=== PATIENT | female | born 1960 | race Caucasian/White ===

== ENCOUNTER → 2016-03-07 | Outpatient (CLI) | payer MEDICARE ==
--- NOTE | 2016-03-07 14:54 | MAM ---
EXAM DESCRIPTION: MAMMO BREAST SCREENING BILATERAL CAD, images were reviewed with CAD technology, R2 computer-aided detection. CLINICAL HISTORY: Well Woman, personal history of breast cancer status post right mastectomy. COMPARISON: 2014. FINDINGS: Routine views are obtained. Heterogeneously dense breast parenchyma with left breast asymmetry approximately 5 cm from the nipple at 2 o'clock period benign appearing calcifications are shown. A port overlies the axillary tissues and reactive appearing lymph nodes also demonstrated.. IMPRESSION: Incomplete study. BIRAD CATEGORY: 0 INCOMPLETE RECOMMENDATIONS: FOLLOW-UP: Mammographic asymmetry left breast 2 o'clock. Exaggerated lateral and true lateral views of the left breast with spot compression films. Directed ultrasound if indicated clinically. According to the [employer], yearly mammograms are recommended starting at age 40 and continuing as long as a woman is in good health. Any breast change noted on a breast self-exam should be reported promptly to the patient's healthcare provider. Breast MRI is recommended for women with an approximately 20-25% or greater lifetime risk of breast cancer, including women with a strong family history of breast or ovarian cancer and women who have been treated for Hodgkin's disease. Electronically signed by: Pauline Hampton 03/07/2016 14:52
== END ==
LOC: MAMMO 13:25
PROVIDERS: ATTEND Internal Medicine Hematology & Oncology
DX: Z12.31 Encounter for screening mammogram for malignant neoplasm of breast (principal)
CPT/HCPCS: 77052; G0202

== ENCOUNTER → 2016-06-21 | Outpatient (CLI) | payer MEDICARE ==
--- NOTE | 2016-06-21 16:44 | MAM ---
History: Mammographic asymmetry left breast 1:00. Personal history of breast cancer status post right mastectomy. DATE OF SERVICE: 06/21/2016 Services provided: Full field digital diagnostic left mammography. FINDINGS: True lateral and spot compression films are obtained. Nodular breast parenchyma is of increased mammographic density however the additional films do not demonstrate a persistent asymmetry. No associated distortion or microcalcification. Study is compared with films from 2015 with glandular pattern stable. IMPRESSION: Benign exam. No mammographic evidence for malignancy left breast. Asymmetry corresponded to overlapping normal glandular tissue in an otherwise nodular dense breast. Recommendation: Routine annual mammography, due in February. Findings and recommendations were communicated to the patient. BIRAD CATEGORY: 2 BENIGN Electronically signed by: Pauline Hampton MD 06/21/2016 4:41 PM CDT
== END ==
LOC: MAMMO 16:05
PROVIDERS: ATTEND Internal Medicine Hematology & Oncology
DX: C50.811 Malignant neoplasm of overlapping sites of right female breast (principal)
CPT/HCPCS: 77065; G0206

== ENCOUNTER → 2017-01-02 | Outpatient (CLI) | payer MEDICARE ==
--- NOTE | 2017-01-03 09:45 | NM ---
EXAM DESCRIPTION: Bone Scan, Whole Body CLINICAL HISTORY: 56-year-old, female, history of breast cancer. COMPARISON: Bone scan dated October 21, 2014. TECHNIQUE: Following intravenous administration of 25 mCi technetium 99 M MDP, whole body scintigraphic imaging was performed. FINDINGS: Skull: Unremarkable. Spine:There is new increased radiotracer uptake in the T10 vertebral body, concerning for osteoblastic metastatic involvement. Thorax: There is new foci of increased linear uptake in the posterior right seventh and ninth ribs, concerning for metastatic involvement. Abdomen and pelvis: Urinary activity seen within the bilateral kidneys and urinary bladder, similar in appearance compared to previous. Extremities: Increased radiotracer uptake seen within the bilateral elbow joints, wrist joints, right ankle and left knee joint compatible with severe degenerative changes. Soft tissue: Normal distribution of radiopharmaceutical. IMPRESSION: New increased radiotracer uptake in the T10 vertebral body as well as posterior right seventh and ninth ribs are concerning for osteoblastic metastatic involvement given patient's history of breast malignancy. Osseous fracture involving the T10 vertebral body and posterior right ribs can have this appearance. Please correlate for history of trauma and focal point tenderness. Electronically signed by: Daniel Mahmood MD 01/03/2017 9:43 AM SECOND MATE
== END | disposition home or self-care (01) ==
LOC: NM 09:42
PROVIDERS: ATTEND Internal Medicine Hematology & Oncology
DX: C50.811 Malignant neoplasm of overlapping sites of right female breast (principal)

== ENCOUNTER 2017-01-04 21:55 | Emergency (ER) | payer MEDICARE ==
[2017-01-04] MEDS ORDERED: IPRATROPIUM/ALBUTEROL 3 ML VIAL NEB ONE (22:04)
--- NOTE | 2017-01-04 22:07 | ED.PDOC ---
History of Present Illness - General Chief Complaint: Respiratory Problem Stated Complaint: Dyspnea Time Seen by Provider: 01/04/17 21:56 Source: patient, RN notes reviewed, Vital Signs reviewed Exam Limitations: no limitations - History of Present Illness Initial Comments: Patient presents to the ER with SOB that started this evening. Reports she started with morning with a scratchy throat and RÍOS. Then developed a productive cough and SOB. Reports the last time she felt like this she had pneumonia. She has a history of breast cancer but has finished treatment. Timing/Duration: 7-24 hours Severity: moderate Activities at Onset: none Possible Cause: illness exposure Improving Factors: nothing Worsening Factors: nothing Associated Symptoms: cough Respiratory Risk Factors: no cause identified Allergies/Adverse Reactions: Allergies NO KNOWN ALLERGY Allergy (Verified 02/09/15 09:12) Home Medications: Ambulatory Orders Alendronate Sodium [Fosamax] 70 mg PO WKLY 02/09/15 Carisoprodol [Soma] 350 mg PO TID 02/09/15 DULoxetine HCL [Cymbalta] 30 mg PO DAILY 02/09/15 Esomeprazole Magnesium [Nexium 24Hr] 20 mg PO DAILY 02/09/15 Ferrous Sulfate [Iron] 65 mg PO BID 02/09/15 Folic Acid 800 mcg PO BID 02/09/15 HYDROcodone 10MG/APAP 325MG [[place] 10/325] 1 tab PO PRN 02/09/15 Methotrexate Sodium [Methotrexate] 2.5 mg PO WKLY 02/09/15 Non-Formulary Medication 1 au INJ MONTHLY 02/09/15 Prednisone 5 mg PO EBONI-OTH-DAY 02/09/15 Tramadol HCl 100 mg PO PRN 02/09/15 Review of Systems - Review of Systems Constitutional: States: chills, malaise EENTM: States: no symptoms reported Respiratory: States: cough, short of breath Cardiology: States: no symptoms reported. Denies: chest pain Gastrointestinal/Abdominal: States: no symptoms reported Musculoskeletal: States: no symptoms reported Skin: States: no symptoms reported Neurological: States: headache All other Systems: No Change from Baseline Past Medical History (General) - Patient Medical History Hx Congestive Heart Failure: No Hx Diabetes: No Physical Exam - Physical Exam General Appearance: Alert, Frail, Ill Appearing, Well Developed, Well Groomed, Well Hydrated, Well Nourished Neck: supple, normal inspection Respiratory: respiratory distress - Mild, decreased breath sounds - Left, accessory muscle use, rhonchi, wheezing Cardiovascular/Chest: regular rate, rhythm, no edema, no gallop, no JVD, no murmur Gastrointestinal/Abdominal: normal bowel sounds, non tender, soft, no organomegaly, no pulsatile mass Extremity: normal range of motion, normal inspection, no pedal edema Neurologic: alert, normal mood/affect, oriented x 3 Skin Exam: normal color, warm/dry Progress - Progress Progress: 01/05/17 01:53 Have been attempting for the past 2 hours to get patient admitted. Hospitalist will not admit here due to spinal lesion. [facility] where her oncologist is will not admit her there for the same reason. Oncologist internal consultant will not admit patient. Neurosurgeon at [facility] in [place] will not admit patient due to potential surgery she may need. Awaiting call back from [facility] in [place]. 01/05/17 01:57 Was given Zithromax 500mg IV for pneumonia 01/05/17 02:14 [facility] no longer has Neurosurgery so now attempting Medical [facility] [place] - Results/Orders Results/Orders: Laboratory Tests 01/04/17 01/04/17 01/04/17 22:10 22:10 22:10 WBC 11.5 H RBC 3.42 L Hgb 9.6 L Hct 29.8 L MCV 87.2 MCH 28.0 MCHC 32.3 L RDW 15.4 H Plt Count 360 MPV 8.1 Absolute Neuts (auto) 9.90 H Absolute Lymphs (auto) 0.90 L Absolute Monos (auto) 0.70 Absolute Eos (auto) 0.00 Absolute Basos (auto) 0.00 Neutrophils % 86.1 H Lymphocytes % 7.9 L Monocytes % 5.8 Eosinophils % 0.0 L Basophils % 0.2 D-Dimer, Quantitative 1048 H* Sodium 133 L Potassium 3.6 Chloride 99 L Carbon Dioxide 25 Anion Gap 12.6 BUN 11 Creatinine 0.60 BUN/Creatinine Ratio 18.3 Random Glucose 124 H Serum Osmolality 267.2 L Lactic Acid Calcium 8.6 Total Bilirubin 0.3 AST 74 H ALT 81 H Alkaline Phosphatase 390 H B-Natriuretic Peptide 615.0 H* Serum Total Protein 7.5 Albumin 3.2 Globulin 4.3 H Albumin/Globulin Ratio 0.7 L 01/04/17 23:05 WBC RBC Hgb Hct MCV MCH MCHC RDW Plt Count MPV Absolute Neuts (auto) Absolute Lymphs (auto) Absolute Monos (auto) Absolute Eos (auto) Absolute Basos (auto) Neutrophils % Lymphocytes % Monocytes % Eosinophils % Basophils % D-Dimer, Quantitative Sodium Potassium Chloride Carbon Dioxide Anion Gap BUN Creatinine BUN/Creatinine Ratio Random Glucose Serum Osmolality Lactic Acid 1.2 Calcium Total Bilirubin AST ALT Alkaline Phosphatase B-Natriuretic Peptide Serum Total Protein Albumin Globulin Albumin/Globulin Ratio - EKG/XRAY/CT XRAY: chest - LLL Infiltrate per Rad CT Ordered: Yes - T10 spinal mass neoplasm vs infection per Radiologist Departure - Departure Clinical Impression: Lumbar epidural mass Pneumonia Qualifiers: Pneumonia type: due to unspecified organism Laterality: left Lung location: lower lobe of lung Qualified Code(s): J18.1 - Lobar pneumonia, unspecified organism Breast cancer in female Qualifiers: Breast location: unspecified site of breast Estrogen receptor status: unspecified Laterality: right Qualified Code(s): C50.911 - Malignant neoplasm of unspecified site of right female breast Time of Disposition: 02:33 Disposition: Transfer to Hospital Condition: Poor Departure Forms: ED Discharge - Pt. Copy, Patient Portal Self Enrollment Referrals: Yogesh Hoyt MD [Primary Care Provider] - 1-2 Weeks Home Medications: Ambulatory Orders Alendronate Sodium [Fosamax] 70 mg PO WKLY 02/09/15 Carisoprodol [Soma] 350 mg PO TID 02/09/15 DULoxetine HCL [Cymbalta] 30 mg PO DAILY 02/09/15 Esomeprazole Magnesium [Nexium 24Hr] 20 mg PO DAILY 02/09/15 Ferrous Sulfate [Iron] 65 mg PO BID 02/09/15 Folic Acid 800 mcg PO BID 02/09/15 HYDROcodone 10MG/APAP 325MG [[place] 10/325] 1 tab PO PRN 02/09/15 Methotrexate Sodium [Methotrexate] 2.5 mg PO WKLY 02/09/15 Non-Formulary Medication 1 au INJ MONTHLY 02/09/15 Prednisone 5 mg PO EBONI-OTH-DAY 02/09/15 Tramadol HCl 100 mg PO PRN 02/09/15 Transfer to Outside Facility - Transfer Information Accepting Provider:: Dr. Vallejo - hospitalist and Dr. Nielsen - Spine Accepting Facility: [facility] Reason for Transfer: required specialist not available
--- NOTE | 2017-01-04 22:54 | RAD ---
EXAM DESCRIPTION: Chest,2 Views CLINICAL HISTORY: SOB, Cough, Fever COMPARISON: 02/10/2015 and 02/09/2015 FINDINGS: Two views of the chest are submitted. Subcutaneous Central catheter tip is unchanged, near the origin of the SVC. There is consolidation at the left posterior lung base and mild atelectasis at the right lung base. There is a right seventh rib fracture not previously seen. It appears acute. Correlation with exam is recommended. Heart size is stable. There is a possible hiatal hernia. There is a collapsed the midthoracic vertebral body that was not previously seen. This causes exaggerated thoracic kyphosis. IMPRESSION: Consolidation at the left lung base. Possible hiatal hernia. Thoracic vertebral body collapse, new since the prior exam. Right seventh rib fracture, new since the prior exam and possibly acute. Electronically signed by: Chava Goldstein 01/04/2017 10:53 PM [facility]
[2017-01-04] MEDS ORDERED: AZITHROMYCIN IV 500 MG in SODIUM CHLORIDE 0.9% 250ML 250 ML IVPB ONE (22:58)
[2017-01-04] MEDS ORDERED: SODIUM CHLORIDE 0.9% 250ML 250 ML ONE (23:25)
[2017-01-04] MEDS ORDERED: AZITHROMYCIN IV 500 MG VIAL IVPB ONE (23:25)
--- NOTE | 2017-01-04 23:45 | CT ---
PROCEDURE: CTA Chest CLINICAL HISTORY: 56 years Female SOB w/ elevated D-Dimer COMPARISON: None. TECHNIQUE: Contiguous axial images were obtained through the chest during the infusion of IV contrast. Reformatted images obtained. MIP reformatted images obtained. This exam was performed according to our department optimization program which includes automated exposure control, adjustment of the mA and/or kv according to patient size and/or use of iterative reconstruction technique. FINDINGS: Motion artifact limits evaluation. Moderate hiatal hernia. No convincing evidence for pulmonary embolus. No significant hilar or mediastinal adenopathy. No evidence of pericardial fluid. Trace pleural effusions. Aorta is normal in caliber without dissection or rupture. Xyefbs-y-[id number] catheter over the left chest. There is a vertebral plana at T10 which given the patient's history may reflect osseous metastatic disease. There is retropulsion of the fracture fragments with moderate narrowing of the central canal. There is some of the posterior elements at T10. There also appears to be partial destruction of the anterior aspect of T9. There is gibbus deformity as a result of the fracture. Tumor appears to extend into the T10 pedicle and right side of the epidural space. The possibility of infection is not excluded but thought less likely. Emphysematous changes. There is mild bronchial wall thickening with areas of atelectasis and infiltrate in the left lower lobe which may BE infectious in nature. Small amount of atelectasis and patchy infiltrate is present in the right lung base and right middle lobe. There are occasional noncalcified pulmonary nodules which again given the history, is suspicious for metastatic disease. Small focus is seen in the posterior aspect of the right upper lobe on image 31. Right lower lobe nodule on image 57 measures 6 mm. Heterogeneity of the liver with area of hyperdensity in the right lobe that may be as result of perfusion abnormality versus mass. Low-attenuation lesion in the dome concerning for neoplasm measures 2.4 cm. IMPRESSION:No evidence of pulmonary embolus Patchy areas of alveolar infiltrate and atelectasis in the left lower lobe with associated pleural effusion concerning for infectious process. Small amount of bronchial wall thickening and density is present in the right middle lobe and right lung base Vertebral plana at T10 with soft tissue mass in the anterior and right epidural space resulting in moderate central canal stenosis concerning for metastatic disease with some involvement of the anterior aspect of T9. Possibility of infection is not excluded but thought less likely Noncalcified pulmonary nodules and areas of heterogeneity within the liver as described above. Findings may reflect metastatic disease Electronically signed by: Carina Nation 01/04/2017 11:44 PM [facility]
[2017-01-05] MEDS ORDERED: ALBUTEROL SULFATE 2.5 MG/3 ML VIAL NEB ONE (00:02)
[2017-01-05] MEDS ORDERED: ACETAMINOPHEN 500 MG TAB ONE (03:00)
[2017-01-05] MEDS ORDERED: ACETAMINOPHEN 500 MG TAB PO ONE (03:00)
[2017-01-05 03:40] VITALS: BP 106/58; TEMP 101; O2SAT 99
== END 2017-01-05 03:30 | disposition short-term general hospital (02) ==
LOC: ER 21:55
DX: J18.1 Lobar pneumonia, unspecified organism (principal); M53.9 Dorsopathy, unspecified; C50.911 Malignant neoplasm of unspecified site of right female breast; Z79.899 Other long term (current) drug therapy
CPT/HCPCS: 36415; 71020; 71275; 80053; 83605; 83880; 85025; 85379; 87040; 94640; J0456; J7050; J7611; J7620

== ENCOUNTER → 2017-04-04 | Outpatient (CLI) | payer MEDICARE ==
--- NOTE | 2017-04-09 12:20 | MAM ---
EXAM DESCRIPTION: 3D Screening, Left : Digital Mammography. CLINICAL HISTORY: 57 years Female SCREENING . Right breast cancer and mastectomy. Remote family history of breast cancer. Postmenopausal. No HRT. COMPARISON: 2-D digital screening study left breast 03/07/2016, 2-D digital left breast diagnostic examination 06/21/2016, and 2-D digital bilateral diagnostic examination 09/30/2014. No prior reports available. Reports from prior examinations also reviewed. Report from prior examination also reviewed. TECHNIQUE: Left CC and MLO projection full-field images, 3-D tomosynthesis digital mammographic technique. Also left synthesized CC/ MLO full-field images. CAD not utilized. FINDINGS: Left breast parenchymal density pattern is: Heterogeneously dense breast tissue, which may obscure small masses. No skin thickening or nipple retraction injection port for VAD upper left breast. Coarse and solitary microcalcifications. No focal, stellate mass or density, focal asymmetry , and no suspicious microcalcifications left breast. Stable mammograms compared to prior study, taking into account differences in mammographic technique IMPRESSION: BI-RADS CATEGORY: 2 - BENIGN FINDINGS. FOLLOW UP: Routine digital left breast screening, one year interval from March 2017. Written communication explaining the IMPRESSION and follow-up, will be mailed to the patient and referring health care provider. According to the [employer], yearly mammograms are recommended starting at age 40 and continuing as long as a woman is in good health. Any breast change noted on a breast self-exam should be reported promptly to the patient's healthcare provider. Breast MRI is recommended for women with an approximately 20-25% or greater lifetime risk of breast cancer, including women with a strong family history of breast or ovarian cancer and women who have been treated for Hodgkin's disease. A negative mammographic report should not delay tissue diagnosis in patients with significant clinical history or physical findings. Extremely dense breast tissue limits the sensitivity of digital mammography. Electronically signed by: Chava Wilkerson MD 04/09/2017 12:19 PM [employer]
== END ==
LOC: MAMMO 14:30
PROVIDERS: ATTEND Internal Medicine Hematology & Oncology
DX: Z12.31 Encounter for screening mammogram for malignant neoplasm of breast (principal)

== ENCOUNTER 2017-07-25 18:49 | Emergency (ER) | payer MEDICARE ==
[2017-07-25] MEDS ORDERED: fentaNYL CITRATE INJ 50 MCG/ML AMP IV ONE ×2 (18:59→21:06)
--- NOTE | 2017-07-25 19:31 | ED.PDOC ---
History of Present Illness - General Chief Complaint: Lower Extremity Injury Stated Complaint: Rt hip pain Time Seen by Provider: 07/25/17 19:04 Source: patient Exam Limitations: no limitations - History of Present Illness Initial Comments: Annemarie Lora 57 y/o female stated that while she was walking t her gate had heard a pop on right hip with onset of sharp constant pain pain on her right hip after wards then had to hold on to the gate railings to prevent her from falling since she had severe pain on weight bearing then called up ambulance.She stated had history of right breast cancer with distant metastasis to her t-spine ,liver.Diagnosed in 2015 initially with right breast ca and had 15 positive nodes on mastectomy w/LN dissection.Then 2017 had PNA but noted t- spine mets.Underwent chemotherapy and radiation treatment with Dr. Ramirez- oncologist.. Occurred: just prior to arrival Pain - Lower Extremity: moderate: Right Thigh/Hip Method of Injury: other - see hpi Improving Factors: rest Worsening Factors: movement Associated Symptoms: see hpi Allergies/Adverse Reactions: Allergies NO KNOWN ALLERGY Allergy (Verified 02/09/15 09:12) Home Medications: Ambulatory Orders Alendronate Sodium [Fosamax] 70 mg PO WKLY 02/09/15 Carisoprodol [Soma] 350 mg PO TID 02/09/15 DULoxetine HCL [Cymbalta] 30 mg PO DAILY 02/09/15 Esomeprazole Magnesium [Nexium 24Hr] 20 mg PO DAILY 02/09/15 Ferrous Sulfate [Iron] 65 mg PO BID 02/09/15 Folic Acid 800 mcg PO BID 02/09/15 HYDROcodone 10MG/APAP 325MG [[place] 10/325] 1 tab PO PRN 02/09/15 Methotrexate Sodium [Methotrexate] 2.5 mg PO WKLY 02/09/15 Non-Formulary Medication 1 au INJ MONTHLY 02/09/15 Prednisone 5 mg PO EBONI-OTH-DAY 02/09/15 Tramadol HCl 100 mg PO PRN 02/09/15 Review of Systems - Review of Systems Constitutional: States: no symptoms reported EENTM: States: no symptoms reported Respiratory: States: no symptoms reported Cardiology: States: no symptoms reported Musculoskeletal: States: see HPI Neurological: States: no symptoms reported Past Medical History (General) - Patient Medical History Hx Seizures: No Hx Stroke: No Hx Dementia: No Hx Asthma: No Hx of COPD: No Hx Cardiac Disorders: Yes - Tachycardia Hx Congestive Heart Failure: No Hx Pacemaker: No Hx Hypertension: No Hx Thyroid Disease: No Hx Diabetes: No Hx Gastroesophageal Reflux: No Hx Renal Disease: No Hx Cancer: Yes - Breast that has mets to bone and liver Hx of HIV: No Hx Hepatitis C: No Hx MRSA: No Hx Other PMH: Yes - Rheumatoid arthritis Surgical History: cancer surgery, other - right knee,back - Vaccination History Hx Tetanus, Diphtheria Vaccination: Yes Hx Influenza Vaccination: Yes Hx Pneumococcal Vaccination: Yes Immunizations Up to Date: Yes - Social History Hx Tobacco Use: No Hx Chewing Tobacco Use: No Hx Alcohol Use: No Hx Substance Use: No Hx Substance Use Treatment: No Hx Depression: No Feels Threatened In Home Enviroment: No Feels Threatened In a Relationship: No Hx Physical Abuse: No Hx Emotional Abuse: No Hx Suspected Abuse: No - Activities of Daily Living Patient Lives Alone: No Hospice Agency (if applicable):: None - Female History Patient is a Female of Child Bearing Age (10 -59 yrs old): No - Triage Comment ED Triage Comment: Pt states she was walking around and her right hip popped about an hour ago and she started having pain. Pt rates pain 10/28. Family Medical History - Family History Mother Family History: Unknown Hx Family Hypertension: Yes - mom Hx Family Diabetes: Yes - mom Hx Family Cancer: Yes - other relatives Hx Family;Other: DAD-Rheumatoid arthritis Physical Exam - Physical Exam General Appearance: Alert, Comfortable, No apparent distress Eyes, Ears, Nose, Throat: normal ENT inspection Neck: non-tender, supple Cardiovascular/Respiratory: regular rate, rhythm, no M/R/G, normal peripheral pulses, normal breath sounds Gastrointestinal/Abdominal: non-tender, no organomegaly Back: no CVA tenderness, no vertebral tenderness Thigh/Hip: bone tenderness - right hip, limited ROM - right hip, pain - right hip Leg: normal inspection, non-tender, no evidence of injury, other - well healed surgical incision right knee Ankle: non-tender, no evidence of injury Foot: non-tender, no evidence of injury Neuro/Tendon: normal sensation, normal motor functions Mental Status: alert, oriented x 3 Skin: normal color, warm/dry Progress - Progress Progress: 07/25/17 19:36 Vital Signs - 8 hr 07/25/17 18:57 Temperature 97.9 F Pulse Rate [ 95 H Monitor] Respiratory 18 Rate Blood Pressure 157/80 [Right Arm] O2 Sat by Pulse 100 Oximetry 07/25/17 21:42 D/W Dr. Ramirez advised to call orthopedic oncologist Dr. Gerard Dawn- [facility]. - EKG/XRAY/CT CT Ordered: Yes - pelvis -pathologic fracture right hip w/multiple pelvic lesion Departure - Departure Clinical Impression: Pathological fracture, hip, unspecified, initial encounter for fracture, Metastatic breast cancer, Pain, joint, hip, right Time of Disposition: 21:40 Disposition: Transfer to Hospital Condition: Poor Departure Forms: Patient Portal Self Enrollment Referrals: Yogesh Hoyt MD [Primary Care Provider] - 1-2 Weeks Home Medications: Ambulatory Orders Alendronate Sodium [Fosamax] 70 mg PO WKLY 02/09/15 Carisoprodol [Soma] 350 mg PO TID 02/09/15 DULoxetine HCL [Cymbalta] 30 mg PO DAILY 02/09/15 Esomeprazole Magnesium [Nexium 24Hr] 20 mg PO DAILY 02/09/15 Ferrous Sulfate [Iron] 65 mg PO BID 02/09/15 Folic Acid 800 mcg PO BID 02/09/15 HYDROcodone 10MG/APAP 325MG [[place] 10/325] 1 tab PO PRN 02/09/15 Methotrexate Sodium [Methotrexate] 2.5 mg PO WKLY 02/09/15 Non-Formulary Medication 1 au INJ MONTHLY 02/09/15 Prednisone 5 mg PO EBONI-OTH-DAY 02/09/15 Tramadol HCl 100 mg PO PRN 02/09/15 Transfer to Outside Facility - Transfer Information [facility] Reason for Transfer: required specialist not available
--- NOTE | 2017-07-25 20:43 | CT ---
EXAM DESCRIPTION: Pelvis CLINICAL HISTORY: 57 years Female pain right/hip;hx of right breast CA w/mets COMPARISON: None TECHNIQUE: Multiplanar imaging through the pelvis without contrast. This exam was performed according to our departmental dose-optimization program, which includes automated exposure control, adjustment of the mA and/or kV according to patient size and/or use of iterative reconstruction technique. FINDINGS: Right femoral subcapital neck fracture with proximal displacement of distal fracture fragment with mild impaction at the femoral head fracture fragment. Multiple lytic lesions seen within the right trochanteric region measuring up to 2 cm. Additional lytic lesions seen within the left iliac bone with area of irregularity. Additional lytic lesion within the right iliac bone at the sacroiliac joint and within the right superior acetabulum. Subacute appearing fracture through the right inferior pubic ramus. Focal sclerosis within the left ischium. Sclerotic lesions within the inferior aspect of the L4 vertebral body. L5-S1 degenerative changes. IMPRESSION: Right femoral neck subcapital fracture with displacement and impaction. Nondisplaced fracture through the right inferior pubic ramus. Fractures may be pathologic. Multiple osseous lesions consistent with metastases. Electronically signed by: Tacho Arceo MD 07/25/2017 8:42 PM CDT
[2017-07-25 22:01] VITALS: O2SAT 98
[2017-07-25 22:02] VITALS: BP 145/97; TEMP 97.5
== END 2017-07-25 22:15 | disposition short-term general hospital (02) ==
LOC: ER 18:49
DX: M84.459A Pathological fracture, hip, unspecified, initial encounter for fracture (principal); R00.0 Tachycardia, unspecified; M06.9 Rheumatoid arthritis, unspecified; Z85.3 Personal history of malignant neoplasm of breast; Z85.830 Personal history of malignant neoplasm of bone; Z85.05 Personal history of malignant neoplasm of liver
CPT/HCPCS: 36416; 72192; 81001; J3010

== ENCOUNTER → 2017-08-19 | Outpatient (CLI) | payer MEDICARE | LOC: LAB.O 10:16 | PROVIDERS: ATTEND Internal Medicine Hematology & Oncology | DX: C50.811 Malignant neoplasm of overlapping sites of right female breast (principal); C79.31 Secondary malignant neoplasm of brain; C79.51 Secondary malignant neoplasm of bone; C77.3 Secondary and unspecified malignant neoplasm of axilla and upper limb lymph nodes; D50.9 Iron deficiency anemia, unspecified; M85.88 Other specified disorders of bone density and structure, other site; G89.29 Other chronic pain; M06.9 Rheumatoid arthritis, unspecified; M47.816 Spondylosis without myelopathy or radiculopathy, lumbar region; Z17.0 Estrogen receptor positive status [ER+]; Z72.0 Tobacco use ==

== ENCOUNTER → 2017-08-30 | Outpatient (CLI) | payer MEDICARE | LOC: LAB.O 13:42 | PROVIDERS: ATTEND Internal Medicine Hematology & Oncology | DX: C50.811 Malignant neoplasm of overlapping sites of right female breast (principal) ==

== ENCOUNTER → 2017-09-06 | Outpatient (CLI) | payer MEDICARE | LOC: LAB.O 16:50 | PROVIDERS: ATTEND Internal Medicine Hematology & Oncology | DX: C50.811 Malignant neoplasm of overlapping sites of right female breast (principal) ==

== ENCOUNTER → 2017-09-13 | Outpatient (CLI) | payer MEDICARE | LOC: LAB.O 10:45 | PROVIDERS: ATTEND Internal Medicine Hematology & Oncology | DX: C50.811 Malignant neoplasm of overlapping sites of right female breast (principal) ==

== ENCOUNTER → 2017-11-04 | Outpatient (CLI) | payer MEDICARE | LOC: GRHH 14:50 | PROVIDERS: ATTEND General Practice | DX: C50.911 Malignant neoplasm of unspecified site of right female breast (principal); C79.31 Secondary malignant neoplasm of brain; D50.9 Iron deficiency anemia, unspecified; I50.40 Unspecified combined systolic (congestive) and diastolic (congestive) heart failure ==